=== PATIENT | female | born 1995 | race Caucasian/White ===

== ENCOUNTER 2020-04-08 00:35 | Inpatient (IN) | payer OTHER ==
[2020-04-08] MEDS: ELECTROLYTE-148 SOLN 1,000 ML IV SCH ×3 (04:00→12:15)
[2020-04-08 04:34] LABS: BASO % 0.4 % (0-2.0); EOS % 0.7 % (0-4.5); HEMATOCRIT 30.1 % (32.4-45.2); LYMPH % 14.7 % (8-40); MCH 29.2 pg (25.7-33.7); MCHC 33.3 g/dl (32.0-36.0); MEAN CELL VOLUME 87.7 fl (80-96); MEAN PLT VOLUME 7.7 fl (7.5-11.1); MONO % 5.9 % (3.8-10.2); NEUT % 78.3 % (42.8-82.8); PLATELET COUNT 338 K/MM3 (134-434); RBC 3.43 M/mm3 (3.60-5.2); RDW 15.8 % (11.6-15.6); WHITE BLOOD COUNT 12.6 K/mm3 (4.0-10.0)
[2020-04-08 04:44] LABS: INR 1.03 (0.83-1.09); PROTHROMBIN TIME (PATIENT) 12.2 SEC (9.7-13.0)
[2020-04-08 04:47] LABS: ACTIVATED PTT 27.8 SECONDS (25.2-36.5)
[2020-04-08 05:01] LABS: BLOOD UREA NITROGEN 9.4 mg/dL (7-18); CALCIUM 9.1 mg/dL (8.5-10.1); CREATININE 0.6 mg/dL (0.55-1.3); POTASSIUM 4.2 mmol/L (3.5-5.1)
[2020-04-08] MEDS: MISOPROSTOL 100 MCG TABLET PO SCH ×2 (07:30→14:00)
[2020-04-08] MEDS ORDERED: OXYTOCIN 30 UNITS in 0.9% NS 30 UNIT/500 ML INFUS.BAG IVPB SCH (09:30)
[2020-04-08] MEDS ORDERED: PRENATAL VITAMINS W/ FOLIC ACID TABLET (FP) PO SCH (10:00)
[2020-04-08 11:04] LABS: POC NITRAZINE POS
[2020-04-08] MEDS ORDERED: OXYTOCIN 30 UNITS in 0.9% NS 30 UNIT/500 ML INFUS.BAG IVPB ONE (11:30)
[2020-04-08] MEDS ORDERED: PCA PUMP NR ONE ×3 (11:34→23:33)
[2020-04-08] MEDS ORDERED: BUPIVACAINE HCL/PF 0.25% (2.5MG/ML) 10 ML VIAL ONE ×2 (11:46→19:07)
[2020-04-08] MEDS ORDERED: FENTANYL/BUPIVACAINE/NS/PF - PCEA - 50 ML DISP.SYRIN EP ONE ×3 (11:49→19:01)
[2020-04-08] MEDS: FENTANYL/BUPIVACAINE/NS/PF - PCEA - 50 ML DISP.SYRIN EP SCH (12:15)
[2020-04-08] MEDS ORDERED: ePHEDrine SULFATE 50 MG/1 ML AMPULE ONE (12:26)
[2020-04-08] MEDS ORDERED: NALOXONE HCL 0.4 MG/ML VIAL IVPUSH PRN (13:19)
[2020-04-08] MEDS ORDERED: AMPICILLIN SODIUM 2 GM VIAL ONE (16:58)
[2020-04-08] MEDS ORDERED: AMPICILLIN SODIUM 2 GM VIAL IVPB ONE (17:15)
[2020-04-08] MEDS ORDERED: LIDOCAINE HCL 1% PRESERVATIVE FREE - 30ML VIAL ONE (19:14)
[2020-04-08] MEDS ORDERED: OXYTOCIN 20 UNITS in 0.9% NS 20 UNIT/1,000 ML INFUS.BAG IV ONE (19:14)
[2020-04-08] MEDS: AMPICILLIN SODIUM 1 GM VIAL IVPB SCH (21:00)
[2020-04-08] MEDS ORDERED: CEFAZOLIN ONE (21:09)
[2020-04-08] MEDS ORDERED: D5W ONE (21:09)
[2020-04-08] MEDS ORDERED: AMPICILLIN SODIUM 1 GM VIAL ONE (21:13)
[2020-04-08] MEDS ORDERED: METHYLERGONOVINE MALEATE 0.2 MG/1 ML AMP IM ONE ×2 (22:00→22:14)
[2020-04-08] MEDS ORDERED: BENZOCAINE 20% 57 GM BOTTLE TP PRN (22:12)
[2020-04-08] MEDS ORDERED: WITCH HAZEL 50% (TUCKS) 40 PAD/JAR PAD TP PRN (22:12)
[2020-04-08] MEDS ORDERED: METHYLERGONOVINE MALEATE 0.2 MG/1 ML AMP IM PRN (22:12)
[2020-04-08] MEDS ORDERED: BENZOCAINE 28 GM HEMORRHOIDAL OINTMENT TP PRN (22:12)
[2020-04-08] MEDS ORDERED: BISACODYL 10 MG SUPP.RECT RC PRN (22:12)
[2020-04-08] MEDS ORDERED: OXYTOCIN 20 UNITS in 0.9% NS 20 UNIT/1,000 ML INFUS.BAG IV SCH (22:30)
[2020-04-08 23:06] LABS: CORD HCO3 20.6 mmHg (20-29); CORD PCO2 74.9 mmHg (30-78); CORD pH 7.057 (7.14-7.44)
[2020-04-08 23:17] LABS: CORD HCO3 16.8 mmHg (20-29); CORD PCO2 40.3 mmHg (30-78); CORD pH 7.239 (7.14-7.44)
[2020-04-08] MEDS ORDERED: ACETAMINOPHEN 325 MG TABLET (FP) ONE (23:33)
[2020-04-08] MEDS ORDERED: IBUPROFEN 600 MG TABLET (FP) PO ONE (23:33)
[2020-04-08] MEDS: IBUPROFEN 600 MG TABLET (FP) PO PRN (23:35)
[2020-04-08] MEDS: ACETAMINOPHEN 325 MG TABLET (FP) PO PRN (23:35)
[2020-04-09] MEDS: AMPICILLIN SODIUM 1 GM VIAL IVPB SCH ×2 (01:28→06:13)
[2020-04-09] MEDS: MISOPROSTOL 100 MCG TABLET PO SCH (07:37)
[2020-04-09 08:16] LABS: BASO % 0.2 % (0-2.0); EOS % 0.2 % (0-4.5); HEMATOCRIT 23.3 % (32.4-45.2); HEMOGLOBIN 7.7 GM/dL (10.7-15.3); MCH 29.2 pg (25.7-33.7); MEAN CELL VOLUME 88.5 fl (80-96); MEAN PLT VOLUME 7.5 fl (7.5-11.1); MONO % 9.7 % (3.8-10.2); NEUT % 78.9 % (42.8-82.8); PLATELET COUNT 281 K/MM3 (134-434); RBC 2.63 M/mm3 (3.60-5.2); WHITE BLOOD COUNT 12.6 K/mm3 (4.0-10.0)
[2020-04-09] MEDS: ACETAMINOPHEN 325 MG TABLET (FP) PO PRN ×2 (08:51→22:23)
[2020-04-09] MEDS: FERROUS SO4 325 MG TABLET (FP) PO SCH ×2 (08:51→17:36)
[2020-04-09] MEDS: IBUPROFEN 600 MG TABLET (FP) PO PRN ×2 (08:52→22:24)
[2020-04-09] MEDS: PRENATAL VITAMINS W/ FOLIC ACID TABLET (FP) PO SCH (09:00)
[2020-04-09] MEDS ORDERED: FLU VACCINE (FLULAVAL) PF 60 MCG/0.5 ML SYRINGE 2020-2021 IM ONE (10:00)
[2020-04-09] MEDS: ELECTROLYTE-148 SOLN 1,000 ML IV SCH (13:13)
[2020-04-09] MEDS: FENTANYL/BUPIVACAINE/NS/PF - PCEA - 50 ML DISP.SYRIN EP SCH (13:14)
[2020-04-09] MEDS ORDERED: SENNOSIDES/DOCUSATE COMBO (SENNA PLUS) TABLET (UD) PO PRN (22:00)
[2020-04-10] MEDS: IBUPROFEN 600 MG TABLET (FP) PO PRN (08:59)
[2020-04-10] MEDS: ACETAMINOPHEN 325 MG TABLET (FP) PO PRN (09:00)
[2020-04-10] MEDS: FERROUS SO4 325 MG TABLET (FP) PO SCH (09:00)
[2020-04-10] MEDS ORDERED: DIPHTH,PERTUSS(ACELL),TET 0.5 ML DISP.SYRIN IM ONE (09:00)
[2020-04-10 09:21] VITALS: BP 104/55; PULSE 79; TEMP 98.1
[2020-04-10] MEDS: PRENATAL VITAMINS W/ FOLIC ACID TABLET (FP) PO SCH (10:15)
== END 2020-04-10 13:25 | disposition home or self-care (01) | DRG 807 ==
LOC: JDEL 00:35 → JLDR 02:30 → J3W 04-09 00:22
PROVIDERS: ADMIT Obstetrics & Gynecology; ATTEND Obstetrics & Gynecology
PROC: 10E0XZZ Delivery of Products of Conception, External Approach (ICD-10-PCS; principal; 2020-04-08)
PROC: 0HQ9XZZ Repair Perineum Skin, External Approach (ICD-10-PCS; 2020-04-08)
DX: O42.92 Full-term premature rupture of membranes, unspecified as to length of time between rupture and onset of labor (principal); Z37.0 Single live birth; O48.0 Post-term pregnancy; Z3A.40 40 weeks gestation of pregnancy; O70.9 Perineal laceration during delivery, unspecified; O62.2 Other uterine inertia
CPT/HCPCS: 36415; 36600; 59409; 80048; 82803; 83986-QW; 85025; 85610; 85730; 86780; 86850; 86900; 86901; 90715; C9803; G0008; Q2036; U0003